=== PATIENT | male | born 2005 | race Two or more races ===

== ENCOUNTER 2024-04-09 15:42 | Emergency (ER) | payer MEDICAID, OTHER ==
[~2024-04-09] VITALS: Ht 175.3 cm; Wt 64.8 kg
[2024-04-09] MEDS ORDERED: PRE1T PO (18:27)
[2024-04-09] MEDS ORDERED: ALBUAER3 IN (18:27)
[2024-04-09] MEDS: TERBUTALINE SULFATE 1 MG/ML 1ML VIAL SC ONE (18:39)
[2024-04-09] MEDS: HYDROCORTISONE SOD SUCC 100 MG/2ML INJ VIAL IM ONE (18:39)
[2024-04-09] MEDS: predniSONE 20 MG TAB PO ONE (18:39)
[2024-04-09 19:32] VITALS: BP 111/64; PULSE 84; RESP 20; TEMP 97.6; O2SAT 97
== END 2024-04-09 19:33 | disposition home or self-care (01) ==
LOC: ER 15:42
DX: J45.909 Unspecified asthma, uncomplicated (principal); F17.210 Nicotine dependence, cigarettes, uncomplicated; F15.90 Other stimulant use, unspecified, uncomplicated
CPT/HCPCS: 71046; 96372; 99284; J1720; J3105; J7512